=== PATIENT | female | born 1990 | race African-American/Black ===

== ENCOUNTER 2019-11-02 16:58 | Emergency (ER) | payer OTHER ==
[~2019-11-02] VITALS: Ht 165.1 cm; Wt 50.8 kg
[2019-11-02 17:15] VITALS: BP 104/59
[2019-11-02] MEDS ORDERED: Phenazopyridine 200mg tab ORAL ONE (17:15)
--- NOTE | 2019-11-02 17:15 | NUR ---
ED Nurse Note: Patient walked in to ED c/o urinary frequency with pain while urinating x3-4 weeks ago. Reports white discharges and spotting. LMP 10/03/19. No fever. VSS.
--- NOTE | 2019-11-02 17:28 | NUR ---
ED Nurse Note: ERPA at bedside for wet mount procedure.
[2019-11-02 17:48] LABS: APPEARANCE,URINE CLEAR; BILIRUBIN, URINE NEGATIVE (NEGATIVE); COLOR,URINE PALE YELLOW; GLUCOSE, URINE (UA) NEGATIVE (NEGATIVE); KETONES,URINE NEGATIVE (NEGATIVE); LEUKOCYTE ESTERASE ,URINE 1+ (NEGATIVE); NITRITE,URINE NEGATIVE (NEGATIVE); PH,URINE 8 (4.5-8.0); PROTEIN,URINE NEGATIVE (NEGATIVE); UROBILINOGEN,URINE 1 MG/DL (0.0-1.0)
--- NOTE | 2019-11-02 18:09 | Emergency Room Report ---
History of Present Illness General Chief Complaint: Vaginal Source: Patient Present Illness HPI 29-year-old female presents to the emergency department complaining of 10 out of 10 severity dysuria with associated urinary frequency x3 weeks. Patient denies blood in the urine she states she does have some light spotting this past week which is unusual for her as she is not due for her. Until tomorrow. Patient reports recent unprotected intercourse and states she is also experiencing some milky white vaginal discharge. Patient denies suspicion for STI she reports frequent history of BV in the past. She denies external genital lesions or rashes. She denies suspicion of . She reports lower left adnexal pain. She reports hx of Cysts as well as ectopic. Pt. is - 2 vaginal deliveries, the last child was a , one miscarriage, and one ectopic.She denies nausea vomiting. Allergies: Coded Allergies: Shrimp (Verified Allergy, Unknown, 11/02/19) Uncoded Allergies: COCK ARCE (Allergy, Unknown, 11/02/19) Patient History Past Medical History: see triage record Past Surgical History: none Pertinent Family History: none Last Menstrual Period: 10/03/19 Now: No Reviewed Nursing Documentation: PMH: Agreed; PSxH: Agreed Nursing Documentation-PMH Past Medical History: No History, Except For Hx Asthma: Yes Review of Systems All Other Systems: negative except mentioned in HPI Physical Exam Vital Signs Date Time Temp Pulse Resp B/P (MAP) Pulse Ox O2 Delivery O2 Flow Rate FiO2 11/02/19 17:07 98.2 70 15 104/59 (74) 98 Room Air Sp02 EP Interpretation: reviewed, normal General Appearance: no apparent distress, alert, GCS 15, non-toxic Head: normocephalic, atraumatic Eyes: bilateral eye normal inspection, bilateral eye PERRL ENT: hearing grossly normal, normal voice Neck: full range of motion Respiratory: lungs clear, normal breath sounds, speaking full sentences Cardiovascular #1: regular rate, rhythm Gastrointestinal: normal bowel sounds, non tender, soft, non-distended, no guarding Rectal: deferred Genitourinary: normal inspection, no CVA tenderness, adnexa normal, cervix normal, ext genitalia/vag normal, other - milky white vaginal d/c. No CMT Musculoskeletal: normal range of motion, gait/station normal, non-tender Neurologic: alert, motor strength/tone normal, oriented x3, sensory intact, responsive, speech normal Psychiatric: judgement/insight normal Skin: no rash Lymphatic: no adenopathy Medical Decision Making PA Attestation Dr. Claire is my supervising Physician whom patient management has been discussed with. Diagnostic Impression: Primary Impression: Bacterial vaginosis Additional Impressions: UTI (urinary tract infection) Qualified Codes: N30.01 - Acute cystitis with hematuria Positive test Adnexal pain ER Course 29-year-old female presents to the emergency department complaining of 10 out of 10 severity dysuria with associated urinary frequency x3 weeks. Patient denies blood in the urine she states she does have some light spotting this past week which is unusual for her as she is not due for her. Until tomorrow. Patient reports recent unprotected intercourse and states she is also experiencing some milky white vaginal discharge. Patient denies suspicion for STI she reports frequent history of BV in the past. She denies external genital lesions or rashes. She denies suspicion of . She reports lower left adnexal pain. She reports hx of Cysts as well as ectopic. Pt. is - 2 vaginal deliveries, the last child was a , one miscarriage, and one ectopic.She denies nausea vomiting. Ddx considered but are not limited to UTi , Pyelo, STI, Stone, Cystitis, vaginal laceration, vaginitis. Vital signs: are WNL, pt. is afebrile H& PE are most consistent with: Vaginitis ORDERS: - UA labs are attached -Urine Hcg: Positive - Wet Mount : clue cells and wbc's -ABO : O POSITIVE -US: No IUP, no ectopic. right ovarian cyst. scant free fluid. ED INTERVENTIONS: -Pyridium PO DISCHARGE: At this time pt. is stable for d/c to home. Will provide printed patient care instructions, and any necessary prescriptions. Care plan and follow up instructions have been discussed with the patient prior to discharge. discussed with the patient prior to discharge. Labs Test 11/02/19 17:00 11/02/19 18:39 Urine Color Pale yellow Urine Appearance Clear Urine pH 8 (4.5-8.0) Urine Specific Wheeler 1.010 (1.005-1.035) Urine Protein Negative (NEGATIVE) Urine Glucose (UA) Negative (NEGATIVE) Urine Ketones Negative (NEGATIVE) Urine Blood Negative (NEGATIVE) Urine Nitrite Negative (NEGATIVE) Urine Bilirubin Negative (NEGATIVE) Urine Urobilinogen 1 MG/DL (0.0-1.0) Urine Leukocyte Esterase 1+ (NEGATIVE) Urine RBC 0-2 /HPF (0 - 2) Urine WBC 5-10 /HPF (0 - 2) Urine Squamous Epithelial Cells Moderate /LPF (NONE/OCC) Urine Amorphous Sediment Few /LPF (NONE) Urine Bacteria Many /HPF (NONE) Urine HCG, Qualitative Positive (NEGATIVE) Human Chorionic Gonadotropin, Quant 216 mIU/mL (1-6) CT/MRI/US Diagnostic Results CT/MRI/US Diagnostic Results : Imaging Test Ordered: US OB Impression "No ectopic no IUP seen. Right ovarian cyst, small amount of free fluid in the cul-de-sac as well as right adnexal area. Normal blood flow to the ovaries bilaterally." Per US tech. Last Vital Signs Date Time Temp Pulse Resp B/P (MAP) Pulse Ox O2 Delivery O2 Flow Rate FiO2 11/02/19 17:15 98.2 70 15 104/59 98 Room Air Disposition: HOME, SELF-CARE Condition: Stable Scripts Vit #91/Fe Fum/Fa/Dha ( + DHA COMBO PACK) 1 Each Combo..pkg 1 EACH PO DAILY, #1 PACK Prov: Nancy Millan 11/02/19 Metronidazole* (FLAGYL*) 500 Mg Tablet 500 MG ORAL BID for 7 Days, #14 TAB Prov: Nancy Millan 11/02/19 Cephalexin* (KEFLEX*) 500 Mg Capsule 500 MG ORAL EVERY 12 HOURS for 7 Days, #14 CAP 0 Refills Prov: Nancy Millan 11/02/19 Patient Instructions: Abdominal Pain During , [id number], First Trimester of , Urinary Tract Infection, [id number] Additional Instructions: Take medications as directed. Follow up with a OBGYN within 3 days, even if your symptoms have resolved. Return sooner to ED if new symptoms occur, or current symptoms become worse. - Please note that this Emergency Department Report was dictated using [employer] technology software, occasionally this can lead to erroneous entry secondary to interpretation by the dictation equipment. Nancy Millan Nov 02, 2019 18:09
--- NOTE | 2019-11-02 18:41 | NUR ---
ED Nurse Note: Blood collected and sent to lab.
--- NOTE | 2019-11-02 19:16 | NUR ---
HAND-OFF: Report given to Merari HDEZ. Endorsed plan of care.
[2019-11-02] MEDS ORDERED: CEPHALEXIN500 MG ORAL (21:14)
[2019-11-02] MEDS ORDERED: METRONIDAZOLE500 MG ORAL (21:14)
[2019-11-02] MEDS ORDERED: PRENATAL + DHA1 EAC1 PO (21:14)
[2019-11-02 21:25] VITALS: BP 110/62
--- NOTE | 2019-11-02 21:25 | NUR ---
ER DISCHARGE NOTE: Patient is cleared to be discharged per ERMD, pt is aox4, on room air, with stable vital signs. pt was given dc and prescription instructions, pt was able to verbalize understanding, pt id band and iv site removed without complications. pt is able to ambulate with steady gait. pt took all belongings.
--- NOTE | 2019-11-04 09:09 | Diagnostic Imaging Report ---
Indication: Pelvic pain, history of left ectopic treated with medication, left lower quadrant pain Technique: Transabdominal and transvaginal images of the pelvis. Doppler interrogation of the ovaries Comparison: none Findings: Uterus measures 9.2 cm length by 5.5 cm AP. The endometrium is thickened. No intrauterine is demonstrated. No myometrial abnormality. Right ovary measures 5.3 cm length, demonstrates normal flow on Doppler imaging. The left ovary measures 4.7 cm in length, demonstrates normal flow on Doppler imaging. A small amount of free cul-de-sac fluid is demonstrated. Impression: No intrauterine demonstrated. Differential considerations include very early , spontaneous , ectopic . Weakly positive beta-hCG could also be residual from previously medically treated ectopic given stated clinical history. Correlate with serial beta-hCGs, consider follow-up sonography as indicated
== END 2019-11-02 21:25 | disposition home or self-care (01) ==
LOC: EMR 18:37
DX: N30.01 Acute cystitis with hematuria (principal); N76.0 Acute vaginitis; R10.9 Unspecified abdominal pain; Z91.013 Allergy to seafood; Z91.048 Other nonmedicinal substance allergy status; N83.201 Unspecified ovarian cyst, right side
CPT/HCPCS: 36415; 76801; 81003; 81025; 84702; 86900; 86901; 87086; 87210; Z7502; 76830; 76856; 99284